=== PATIENT | female | born 1945 | race Caucasian/White ===

== ENCOUNTER 2016-11-06 04:36 | Emergency (ER) | payer MEDICARE, OTHER ==
[~2016-11-06 04:36] MED LIST: ALENDRONATE PO; ASAB PO; BENTYL20 PO; BIOTIN5 MG PO; ESTRACE VAG0.1 MG/GM V; ESTRACE VAGIN42.5 GM V; FLAXSEED OIL1000 MG PO; FLONASE NAS; FOSAMAX35 MG PO; GENTEA2 OPH; HARD NAILS OR; LIPITOR10 PO; LIPITOR20 PO; MELATONIN5 M1 PO; MULTIVITAMI1 PO; NEXIUM40 PO; NORV25 PO; P10 PO; P20 PO; PROAIR HFA INH; PROTONIX PO; PULMICORT180 MCG INH; SINGULAIR1 PO; SYMBICORT 160/41 INH INH; TUMSROLL PO; UNITHROID125 MCG PO; UNITHROID150 MCG PO; VOLTAREN1 % TOP; WELCHOL625 MG OR; ZETIA PO; ZYRTEC ALLGY10 MG PO
== END 2016-11-06 05:02 | disposition home or self-care (01) ==
LOC: ER 04:36
PROC: 0HQ1XZZ Repair Face Skin, External Approach (ICD-10-PCS; principal; 2016-11-06)
DX: S01.81XA Laceration without foreign body of other part of head, initial encounter (principal); S80.02XA Contusion of left knee, initial encounter; I10 Essential (primary) hypertension; K21.9 Gastro-esophageal reflux disease without esophagitis; Z88.0 Allergy status to penicillin; Z79.52 Long term (current) use of systemic steroids; Z79.82 Long term (current) use of aspirin; Z79.899 Other long term (current) drug therapy; W01.0XXA Fall on same level from slipping, tripping and stumbling without subsequent striking against object, initial encounter; Y92.019 Unspecified place in single-family (private) house as the place of occurrence of the external cause
CPT/HCPCS: 90471; 90714; 99284; A9270-GY